=== PATIENT | female | born 1995 | race Caucasian/White ===

== ENCOUNTER 2018-12-07 23:32 | Outpatient (CLI) | payer MEDICAID, OTHER | END 2018-12-07 23:33 | disposition critical access hospital (66) | LOC: EMS 23:32 | PROVIDERS: ATTEND Surgery | DX: M54.2 Cervicalgia (principal); R07.9 Chest pain, unspecified; Y04.8XXA Assault by other bodily force, initial encounter | CPT/HCPCS: A0425; A0429 ==

== ENCOUNTER 2018-12-08 00:08 | Emergency (ER) | payer OTHER, MEDICAID ==
[2018-12-08 01:21] LABS: BILIRUBIN,URINE NEGATIVE (NEGATIVE); GLUCOSE, URINE (UA) NEGATIVE (NEGATIVE); KETONES,URINE (UA) NEGATIVE (NEGATIVE); LEUKOCYTE ESTERASE, URINE NEGATIVE (NEGATIVE); NITRITE,URINE NEGATIVE (NEGATIVE); OCCULT BLOOD,URINE NEGATIVE (NEGATIVE); PROTEIN,URINE NEGATIVE (NEGATIVE); UROBILINOGEN,URINE 0.2 (NORMAL) E.U./dL (NORMAL)
[2018-12-08 01:24] LABS: CLARITY,URINE CLEAR (CLEAR)
[2018-12-08 01:27] VITALS: BP 136/77
[2018-12-08 01:34] LABS: HCG UR QUAL NEGATIVE
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
== END 2018-12-08 03:01 | disposition home or self-care (01) ==
LOC: EDUNIT# → ED 00:08
DX: S20.219A Contusion of unspecified front wall of thorax, initial encounter (principal); W50.0XXA Accidental hit or strike by another person, initial encounter; T71.9XXA Asphyxiation due to unspecified cause, initial encounter; Y08.89XA Assault by other specified means, initial encounter
CPT/HCPCS: 81001; 81003; 81025; 87086; 99283; 99284

== ENCOUNTER 2019-01-29 11:23 | Emergency (ER) | payer MEDICAID, OTHER ==
--- NOTE | 2019-01-29 12:45 | ED Physician Documentation ---
History of Present Illness - Stated complaint Stated Complaint: CONGESTION/SIDE RIB PX/COUGH - Chief complaint Chief Complaint: Resp - History obtained from History obtained from: Patient - History of Present Illness Timing: Other (1 month) Pain level max: 6 Pain level now: 5 - Additonal information Additional information: 23-year-old female presents to the emergency department with a cough for the past month. No fevers. Does have pain in the left chest with coughing. She was recently seen at a clinic and was treated with doxycycline. She states she is not better. She does vape. Dry cough. No difficulty breathing. She is not , breast-feeding or trying to become . Worse with coughing, better with rest Review of Systems Constitutional: denies: Fever, Chills Nose: reports: Rhinorrhea / runny nose, Congestion Throat: denies: Sore throat Cardiac: reports: Chest pain / pressure (Left-sided chest pain only with coughing). denies: Palpitations Respiratory: reports: Cough. denies: Dyspnea, Hemoptysis, Wheezing GI: denies: Nausea, Vomiting, Constipation, Diarrhea : denies: Dysuria, Frequency, Hesitancy, Now EGA Skin: denies: Rash Musculoskeletal: denies: Neck pain Neurologic: denies: Headache PD PAST MEDICAL HISTORY - Past Medical History Past Medical History: No GI: Ulcers - Past Surgical History Past Surgical History: No - Present Medications Home Medications: Ambulatory Orders Medication Instructions Recorded Confirmed Norgestimate-Ethinyl Estradiol 04/27/14 04/27/14 [Mononessa 28 Tablet] Benzonatate [Tessalon Perle] 100 - 200 mg PO TID PRN #30 capsule 01/29/19 Meloxicam [Mobic] 15 mg PO DAILY PRN #20 tablet 01/29/19 - Allergies Allergies/Adverse Reactions: Allergies Allergy/AdvReac Type Severity Reaction Status Date / Time kiwi Allergy Itching Verified 01/29/19 11:38 - Social History Does the pt smoke?: No Smoking Status: Never smoker Does the pt drink ETOH?: No Does the pt have substance abuse?: No - Immunizations Immunizations are current?: Yes - POLST Patient has POLST: No PD ED PE NORMAL - Vitals Vital signs reviewed: Yes - General General: Alert and oriented X 3, No acute distress, Well developed/nourished - HEENT HEENT: PERRL, Ears normal, Moist mucous membranes, Pharynx benign - Neck Neck: Supple, no meningeal sign - Cardiac Cardiac: RRR, Strong equal pulses - Respiratory Respiratory: No respiratory distress, Clear bilaterally - Abdomen Abdomen: Soft, Non tender, Non distended - Derm Derm: Warm and dry, No rash - Extremities Extremities: No edema - Neuro Neuro: Alert and oriented X 3 - Psych Psych: Normal mood, Normal affect Results - Vitals Vitals: Vital Signs - 24 hr 01/29/19 01/29/19 11:35 13:21 Temperature 36.9 C Heart Rate 92 85 Respiratory 14 18 Rate Blood Pressure 124/90 H 111/71 O2 Saturation 98 100 Oxygen O2 Source Room air - Rads (name of study) cxr Radiology: Prelim report reviewed, EMP read contemporaneously, See rad report (Central bronchial wall thickening could reflect underlying reactive airways or bronchitis. No evidence for pneumonia. ) PD MEDICAL DECISION MAKING - ED course Complexity details: reviewed results, re-evaluated patient, considered differential, d/w patient ED course: 23-year-old female with what appears to be a viral upper respiratory infection. She is well-appearing, nontoxic. Afebrile. No acute findings on x-ray that would reflect pneumonia. No hypoxia. Patient counseled regarding signs and symptoms for which I believe and urgent re-evaluation would be necessary. Patient with good understanding of and agreement to plan and is comfortable going home at this time This document was made in part using voice recognition software. While efforts are made to proofread this document, sound alike and grammatical errors may occur. Departure - Departure Disposition: 01 Home, Self Care Clinical Impression: Viral URI Condition: Good Instructions: ED URI Viral Follow-Up: Murtaza Mejía [Primary Care Provider] - Within 1 week Prescriptions: Benzonatate [Tessalon Perle] 100 - 200 mg PO TID PRN #30 capsule PRN Reason: Cough Meloxicam [Mobic] 15 mg PO DAILY PRN #20 tablet PRN Reason: pain Comments: Return if you worsen. Your xray shows no pneumonia today. Discharge Date/Time: 01/29/19 13:20
--- NOTE | 2019-01-29 13:00 | XRAY Report ---
Reason: cough Procedure Date: 01/29/2019 Accession Number: [id number] / [id number] Procedure: XR - Chest 2 View X-Ray CPT Code: 68882 Final Report FULL RESULT: EXAM: CHEST RADIOGRAPHY EXAM DATE: 01/29/2019 12:28 PM. CLINICAL HISTORY: Cough. COMPARISON: None. TECHNIQUE: 2 views. FINDINGS: Lungs/Pleura: Central bronchial wall thickening is seen. No superimposed focal airspace consolidation. No pleural effusion or pneumothorax. Mediastinum: Heart and mediastinal contours are unremarkable. Other: No acute osseous thoracic abnormality evident. IMPRESSION: 1. Central bronchial wall thickening could reflect underlying reactive airways or bronchitis. No evidence for pneumonia. RADIA
[2019-01-29 13:22] VITALS: BP 111/71
== END 2019-01-29 13:20 | disposition home or self-care (01) ==
LOC: ED 11:23
DX: J06.9 Acute upper respiratory infection, unspecified (principal)
CPT/HCPCS: 71046; 99283; 99284

== ENCOUNTER 2020-05-24 08:35 | Emergency (ER) | payer MEDICAID ==
[2020-05-24 08:59] LABS: BILIRUBIN,URINE NEGATIVE (NEGATIVE); GLUCOSE, URINE (UA) NEGATIVE (NEGATIVE); KETONES,URINE (UA) NEGATIVE (NEGATIVE); LEUKOCYTE ESTERASE, URINE NEGATIVE (NEGATIVE); NITRITE,URINE NEGATIVE (NEGATIVE); OCCULT BLOOD,URINE SMALL (NEGATIVE); PROTEIN,URINE NEGATIVE (NEGATIVE); UROBILINOGEN,URINE 0.2 (NORMAL) E.U./dL (NORMAL)
[2020-05-24 09:02] LABS: CLARITY,URINE CLEAR (CLEAR)
[2020-05-24 09:03] LABS: HCG UR QUAL NEGATIVE
[2020-05-24 09:17] LABS: BACTERIA,URINE Rare /HPF (None Seen); MUCUS,URINE Marked Strands; SQUAMOUS EPITHELIAL CELL,UR MOD Squamous (<= Few)
--- NOTE | 2020-05-24 09:52 | ED Physician Documentation ---
History of Present Illness - Stated complaint Stated Complaint: FEMAL - Chief complaint Chief Complaint: Abd Pain - History obtained from History obtained from: Patient - Additonal information Additional information: 24-year-old woman with history of irregular uterine bleeding for the past 6 months presents with cramping lower abdominal pain that is mild, intermittent, associated with menstruation, starting yesterday gradual in onset and nonradiating. She does endorse some dysuria for the past 2 days in the morning that resolves over the course of the day. Denies hematuria or increased freq uency. Patient is requesting STI testing. She denies lesions, discharge, or foul odor. She states that her vaginal bleeding started yesterday and feels like her normal.. It was heavier earlier and now has tapered down. Review of Systems Ten Systems: 10 systems reviewed and negative Constitutional: denies: Fever GI: reports: Abdominal Pain. denies: Nausea, Vomiting, Diarrhea : reports: Dysuria. denies: Frequency, Hematuria Skin: denies: Rash PD PAST MEDICAL HISTORY - Past Medical History Past Medical History: Yes GI: Ulcers - Past Surgical History Past Surgical History: No - Present Medications Home Medications: Ambulatory Orders Medication Instructions Recorded Confirmed Norgestimate-Ethinyl Estradiol 04/27/14 04/27/14 [Mononessa 28 Tablet] Benzonatate [Tessalon Perle] 100 - 200 mg PO TID PRN #30 capsule 01/29/19 Meloxicam [Mobic] 15 mg PO DAILY PRN #20 tablet 01/29/19 - Allergies Allergies/Adverse Reactions: Allergies Allergy/AdvReac Type Severity Reaction Status Date / Time kiwi Allergy Itching Verified 05/24/20 08:48 - Social History Does the pt smoke?: No Smoking Status: Never smoker Does the pt drink ETOH?: No Does the pt have substance abuse?: No - Immunizations Immunizations are current?: Yes - POLST Patient has POLST: No PD ED PE NORMAL - Vitals Vital signs reviewed: Yes - General General: Alert and oriented X 3, No acute distress, Well developed/nourished - HEENT HEENT: Atraumatic, PERRL, EOMI - Neck Neck: Supple, no meningeal sign - Cardiac Cardiac: RRR - Respiratory Respiratory: No respiratory distress, Clear bilaterally - Abdomen Abdomen: Non tender, Non distended, Other (discomfort to suprapubic palpation) - Female 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 normal vaginal exam. normal cervix. no CMT or adnexal ttp) - Rectal Rectal: Deferred - Back Back: No CVA TTP - Derm Derm: Normal color, Warm and dry - Extremities Extremities: No deformity - Neuro Neuro: Alert and oriented X 3 - Psych Psych: Normal mood, Normal affect Results - Vitals Vitals: Vital Signs - 24 hr 05/24/20 08:45 Temperature 36.4 C L Heart Rate 96 Respiratory 16 Rate Blood Pressure 146/85 H O2 Saturation 99 Oxygen O2 Source Room air - Labs Labs: Laboratory Tests 05/24/20 05/24/20 08:53 08:53 Urine Color YELLOW Urine Clarity CLEAR Urine pH 6.0 Ur Specific [place] >=1.030 H Urine Protein NEGATIVE Urine Glucose (UA) NEGATIVE Urine Ketones NEGATIVE Urine Occult Blood SMALL H Urine Nitrite NEGATIVE Urine Bilirubin NEGATIVE Urine Urobilinogen 0.2 (NORMAL) Ur Leukocyte Esterase NEGATIVE Urine RBC 6-10 H Urine WBC 6-10 H Ur Squamous Epith Cells MOD Squamous H Urine Bacteria Rare Urine Mucus Marked Strands Urine Culture Comments NOT INDICATED Urine HCG, Qual NEGATIVE PD MEDICAL DECISION MAKING - ED course ED course: 24-year-old woman presents with dysuria and urinalysis concerning for possible infection. She is requesting STI testing however she does not think that she has been exposed to chlamydia or gonorrhea to her knowledge. Will prescribe antibiotics for UTI and have her follow-up her test results with [employer] for possible treatment of STI. Strict return precautions given. Departure - Departure Clinical Impression: History of heavy vaginal bleeding, Abdominal cramping, Dysuria Condition: Good Instructions: UTI Follow-Up: Denae Sawyer MD [Provider Admit Priv/Credential] - Comments: You were seen in the emergency department for heavy vaginal bleeding, for urinary tract infection, and for an STI check. Please log into your patient health portal at the [facility] to review the results of your STI testing. Follow-up with [facility] [employer] [employer] this week. Return to the emergency department if you develop any new or worsening symptoms or other concerns.
[2020-05-24] MEDS ORDERED: LIDOCAINE 1% 2 ML VIAL MC ONE (10:40)
[2020-05-24] MEDS ORDERED: cefTRIAXone 250 MG VIAL IM STA (10:40)
[2020-05-24 10:55] VITALS: BP 137/82
[2020-05-24 12:58] LABS: BACTERIAL VAGINOSIS DNA POSITIVE (NEGATIVE)
[2020-05-24 15:53] LABS: CANDIDA GLABRATA DNA INDETERMINATE ERROR (NEGATIVE); CANDIDA GROUP DNA INDETERMINATE ERROR (NEGATIVE); CANDIDA KRUSEI DNA INDETERMINATE ERROR (NEGATIVE); TRICHOMONAS VAGINALIS DNA INDETERMINATE ERROR (NEGATIVE)
[2020-05-24 22:30] LABS: NEISSERIA GONORRHOEAE DNA NEGATIVE (NEGATIVE); TRICHOMONAS VAGINALIS DNA NEGATIVE (NEGATIVE)
[2020-05-24 22:36] LABS: CHLAMYDIA TRACHOMATIS DNA POSITIVE (NEGATIVE)
[2020-05-25 14:21] LABS: HIV AG/AB 4TH GEN NON-REACTIVE (NON-REACTIVE)
== END 2020-05-24 10:53 | disposition home or self-care (01) ==
LOC: ED 08:35
DX: N39.0 Urinary tract infection, site not specified (principal); N93.9 Abnormal uterine and vaginal bleeding, unspecified; Z20.2 Contact with and (suspected) exposure to infections with a predominantly sexual mode of transmission
CPT/HCPCS: 36415; 81001; 81025; 87086; 87389; 87491; 87591; 87661; 87801; 96372; 99283; 99284

== ENCOUNTER 2021-02-08 02:39 | Outpatient (CLI) | payer MEDICAID | END 2021-02-08 02:40 | disposition critical access hospital (66) | LOC: EMS 02:39 | DX: M25.571 Pain in right ankle and joints of right foot (principal) | CPT/HCPCS: A0425; A0429 ==

== ENCOUNTER 2021-02-08 02:54 | Emergency (ER) | payer MEDICAID ==
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
[2021-02-08 05:45] VITALS: BP 133/74
--- NOTE | 2021-02-08 07:56 | XRAY Report ---
PROCEDURE: Ankle 3 View RT INDICATIONS: injury, pain, tenderness TECHNIQUE: 3 views of the ankle were acquired. COMPARISON: None. FINDINGS: Bones: No fractures or dislocations. Ankle mortise is normally aligned. No suspicious bony lesions . Soft tissues: No tibiotalar joint effusion. Achilles tendon appears intact. IMPRESSION: 1. No fracture or dislocation. Reviewed by: Humberto Mario MD on 02/08/2021 7:54 AM [facility] Approved by: Humberto Mario MD on 02/08/2021 7:54 AM PST Station ID: [id number]
== END 2021-02-08 05:56 | disposition home or self-care (01) ==
LOC: EDUNIT# → ED 02:54 → SUPCPDRO 02:54 → ED 05:56
DX: S93.401A Sprain of unspecified ligament of right ankle, initial encounter (principal); Y04.2XXA Assault by strike against or bumped into by another person, initial encounter; W10.9XXA Fall (on) (from) unspecified stairs and steps, initial encounter; Y92.039 Unspecified place in apartment as the place of occurrence of the external cause
CPT/HCPCS: 99282; 99283

== ENCOUNTER 2021-07-22 01:15 | Outpatient (CLI) | payer MEDICAID | END 2021-07-22 01:16 | disposition critical access hospital (66) | LOC: EMS 01:15 | DX: T50.902A Poisoning by unspecified drugs, medicaments and biological substances, intentional self-harm, initial encounter (principal) | CPT/HCPCS: A0425; A0427; A0999 ==

== ENCOUNTER 2021-07-22 01:27 | Emergency (ER) | payer MEDICAID ==
[2021-07-22] MEDS ORDERED: SODIUM CHLORIDE 0.9% 1,000 ML IV STA (01:37)
[2021-07-22] MEDS ORDERED: diphenhydrAMINE INJ 50 MG/ML VIAL IVP STA (01:40)
[2021-07-22] MEDS ORDERED: PROCHLORPERAZINE 10 MG/2 ML VIAL IVP STA (01:40)
[2021-07-22 01:42] LABS: BASOPHILS # (AUTO) 0.1 10^3/uL (0.0-0.1); BASOPHILS % (AUTO) 0.6 %; EOSINOPHILS # (AUTO) 0.2 10^3/uL (0.0-0.7); HCT - HEMATOCRIT 42.8 % (37.0-47.0); HGB - HEMOGLOBIN 14.4 g/dL (12.0-16.0); LYMPHOCYTES # (AUTO) 2.7 10^3/uL (1.5-3.5); LYMPHOCYTES % (AUTO) 33.5 %; MEAN CORPUSCULAR HEMOGLOBIN 28.9 pg (27.0-31.0); MEAN CORPUSCULAR HGB CONC 33.6 g/dL (32.0-36.0); MEAN CORPUSCULAR VOLUME 85.9 fL (81.0-99.0); MEAN PLATELET VOLUME 9.6 fL (7.9-10.8); MONOCYTES # (AUTO) 0.6 10^3/uL (0.0-1.0); MONOCYTES % (AUTO) 7.5 %; NEUTROPHILS # (AUTO) 4.6 10^3/uL (1.5-6.6); NEUTROPHILS % (AUTO) 55.9 %; PLT - PLATELET COUNT 394 10^3/uL (130-450); RED BLOOD COUNT 4.98 10^6/uL (4.20-5.40); RED CELL DISTRIBUTION WIDTH 12.4 % (12.0-15.0); WHITE BLOOD COUNT 8.2 x10^3/uL (4.8-10.8)
--- OUTSIDE RECORDS SUMMARY | 2021-07-22 01:45 | EXTERNAL MEDICAL SUMMARY RPT | Continuity of Care Document ---
:1995 Author Organization [facility] Address [address] [place] [address] Phone Allergies No information. Encounters No information. Medications No information. Problems date description facility [id number] safe exam [facility] Results No information.
[2021-07-22] MEDS ORDERED: THIAMINE INJ 100 MG, MAGNESIUM SULFATE 2 GM, MULTIVITAMIN 10 ML, FOLIC ACID INJ 1 MG in... IV ONE ×5 (01:51)
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
[2021-07-22 01:57] LABS: ACETAMINOPHEN < 10 ug/mL (10-30); ALBUMIN 4.4 g/dL (3.2-5.5); ALKALINE PHOSPHATASE 95 IU/L (42-121); ALT ALANINE AMINOTRANSFERASE 30 IU/L (10-60); AST ASPARTATE AMINOTRANSFERASE 34 IU/L (10-42); BILIRUBIN,TOTAL 0.3 mg/dL (0.2-1.0); BUN - BLOOD UREA NITROGEN 5 mg/dL (6-20); CARBON DIOXIDE - CO2 19 mmol/L (21-32); CHLORIDE 104 mmol/L (101-111); CREATININE 0.7 mg/dL (0.4-1.0); ETOH - ETHANOL 236.2 mg/dL; GFR - MDRD 103 (>89); GLUCOSE 102 mg/dL (70-100); LIPASE 29 U/L (22-51); POTASSIUM 3.9 mmol/L (3.5-5.0); SALICYLATE < 6.0 mg/dL; SODIUM 141 mmol/L (135-145); TOTAL PROTEIN 8.6 g/dL (6.7-8.2)
[2021-07-22] MEDS ORDERED: THIAMINE 100 MG/1 ML 2 ML MDV ONE (02:12)
[2021-07-22] MEDS ORDERED: MAGNESIUM SULFATE 1 GM/2 ML VIAL ONE (02:12)
[2021-07-22] MEDS ORDERED: FOLIC ACID 5 MG/1 ML 10ML MDV ONE (02:12)
[2021-07-22] MEDS ORDERED: MULTIVITAMIN IV 10 ML VIAL ONE (02:12)
[2021-07-22 02:23] LABS: BILIRUBIN,URINE NEGATIVE (NEGATIVE); GLUCOSE, URINE (UA) NEGATIVE (NEGATIVE); KETONES,URINE (UA) NEGATIVE (NEGATIVE); LEUKOCYTE ESTERASE, URINE NEGATIVE (NEGATIVE); MUDS CUTOFF CONCENTRATIONS CUTOFF CONC BELOW:; NITRITE,URINE NEGATIVE (NEGATIVE); OCCULT BLOOD,URINE TRACE-INTA (NEGATIVE); PROTEIN,URINE TRACE mg/dL (NEGATIVE); UROBILINOGEN,URINE 0.2 (NORMAL) E.U./dL (NORMAL)
[2021-07-22 02:26] LABS: CLARITY,URINE CLEAR (CLEAR); HCG UR QUAL NEGATIVE
--- NOTE | 2021-07-22 02:38 | XRAY Report ---
PROCEDURE: Chest 1 View X-Ray INDICATIONS: chest pain TECHNIQUE: One view of the chest was acquired. COMPARISON: 01/29/2019 FINDINGS: Surgical changes and devices: None. Lungs and pleura: No pleural effusions or pneumothorax. Lungs are clear. Mediastinum: Mediastinal contours appear normal. Heart size is normal. Bones and chest wall: No suspicious bony lesions. Overlying soft tissues appear unremarkable. IMPRESSION: 1. No acute cardiopulmonary disease. Reviewed by: Humberto Campa MD on 07/22/2021 2:37 AM PDT Approved by: Humberto Campa MD on 07/22/2021 2:37 AM PDT Station ID: [id number]
[2021-07-22 02:43] LABS: AMPHETAMINE SCREEN,URINE NEGATIVE (NEGATIVE); BARBITURATE SCREEN,UR NEGATIVE (NEGATIVE); BENZODIAZEPINES SCREEN, URINE NEGATIVE (NEGATIVE); COCAINE SCREEN URINE NEGATIVE (NEGATIVE); METHADONE SCREEN, URINE NEGATIVE (NEGATIVE); METHAMPHETAMINES SCREEN, URINE NEGATIVE (NEGATIVE); OPIATE SCREEN, URINE NEGATIVE (NEGATIVE); OXYCODONE SCREEN, URINE NEGATIVE (NEGATIVE); PROPOXYPHENE SCREEN, URINE NEGATIVE (NEGATIVE); THC CANNABINOID SCREEN, URINE NEGATIVE (NEGATIVE); TRICYCLIC ANTIDEPRESSANT,URINE NEGATIVE (NEGATIVE)
[2021-07-22 06:33] LABS: CALCIUM 7.9 mg/dL (8.5-10.3); CREATININE 0.5 mg/dL (0.4-1.0); POTASSIUM 4.2 mmol/L (3.5-5.0)
[2021-07-22 11:02] VITALS: BP 118/67
--- NOTE | 2021-07-22 11:48 | ED Physician Documentation ---
ED Addendum - Addendum Addendum: 07/22/21 11:48 Signed out to me by Dr. Granados at shift change. She is been resting for the last few hours, wanting to leave but cooperative. At this point she is now both biochemically and clinically sober. I talked with her at length. She is no longer suicidal and feels safe going home. She declined further evaluation or treatment. Contracted for safety. Disposition: Discharged home Condition: Stable Diagnosis: 1. Alcohol intoxication 2. Drug overdose
== END 2021-07-22 12:45 | disposition home or self-care (01) ==
LOC: EDUNIT# → ED 01:27
DX: T50.902A Poisoning by unspecified drugs, medicaments and biological substances, intentional self-harm, initial encounter (principal); F10.129 Alcohol abuse with intoxication, unspecified; Y90.7 Blood alcohol level of 200-239 mg/100 ml; Z20.822 Contact with and (suspected) exposure to COVID-19
CPT/HCPCS: 36415; 71045; 80048; 80053; 80306; 80307; 80320; 80329; 81003; 81025; 83605; 83690; 83735; 84443; 85025; 87635; 93005; 96365; 96366; 96375; 99283; 99284; J1200; J3411; 81001; 87086

== ENCOUNTER 2023-05-06 10:53 | Emergency (ER) | payer MEDICAID ==
[2023-05-06 11:06] VITALS: BP 129/74; O2SAT 97
--- NOTE | 2023-05-06 13:31 | ED Physician Documentation ---
History of Present Illness - Stated complaint Stated Complaint: CP/COUGH/BODY ACHES - Chief complaint Chief Complaint: General - History obtained from History obtained from: Patient - Additonal information Additional information: Otherwise healthy 27-year-old woman has been sick for about 5 days with cough, nonproductive. Sore throat and bodyaches. Had a fever on the first day but not since. Multiple sick contacts at work. PD PAST MEDICAL HISTORY - Past Medical History GI: Ulcers Psych: Depression, Anxiety - Past Surgical History Past Surgical History: No Ortho: Other - Present Medications Home Medications: Ambulatory Orders Medication Instructions Recorded Confirmed Norgestimate-Ethinyl Estradiol 1 tab PO DAILY 04/27/14 05/06/23 [Mononessa 28 Tablet] Acyclovir 200 mg PO DAILY 05/06/23 05/06/23 guaiFENesin/CODEINE [Robitussin AC] 5 - 10 ml PO Q6H PRN #120 ml 05/06/23 predniSONE [Deltasone] 60 mg PO DAILY 5 Days #15 tablet 05/06/23 - Allergies Allergies/Adverse Reactions: Allergies Allergy/AdvReac Type Severity Reaction Status Date / Time kiwi Allergy Itching Verified 05/06/23 11:05 - Social History Does the pt smoke?: No Smoking Status: Never smoker Does the pt drink ETOH?: No Does the pt have substance abuse?: No - Immunizations Immunizations are current?: Yes - POLST Patient has POLST: No PD ED PE NORMAL - Vitals Vital signs reviewed: Yes - General General: Alert and oriented X 3, No acute distress - HEENT HEENT: Ears normal, Other (Large tonsils but without exudates or adenopathy.) - Neck Neck: Supple, no meningeal sign, No bony TTP - Cardiac Cardiac: RRR, No murmur - Respiratory Respiratory: No respiratory distress, Clear bilaterally - Neuro Neuro: Alert and oriented X 3 - Psych Psych: Normal mood, Normal affect Results - Vitals Vitals: Vital Signs - 24 hr 05/06/23 10:59 Temperature 36.6 C Heart Rate 88 Respiratory 16 Rate Blood Pressure 129/74 O2 Saturation 97 Oxygen O2 Source Room air PD Medical Decision Making - ED course ED course: 27-year-old woman with viral URI. No evidence of bacterial component. Treated with steroids and codeine. Departure - Departure Disposition: Home, Self Care Clinical Impression: Viral URI Condition: Good Record reviewed to determine appropriate education?: Yes Instructions: ED Viral Syndrome Prescriptions: predniSONE [Deltasone] 60 mg PO DAILY 5 Days #15 tablet guaiFENesin/CODEINE [Robitussin AC] 5 - 10 ml PO Q6H PRN #120 ml PRN Reason: Cough Comments: I sent your prescription electronically to [facility] in [place]. As discussed this seems like kind of a classic viral respiratory infection and I do not think it would benefit from antibiotics, the steroids should help with your laryngitis part and your breathing and the cough syrup will help as well but do not drink or drive with that. Return if worse. Follow-up with your doctor in a week if not improving. Forms: PCP List
== END 2023-05-06 13:34 | disposition home or self-care (01) ==
LOC: ED 10:53
DX: J06.9 Acute upper respiratory infection, unspecified (principal)
CPT/HCPCS: 99282; 99283